=== PATIENT | male | born 1960 | race Caucasian/White ===

== ENCOUNTER 2022-04-26 20:58 | Emergency (ER) | payer OTHER, SELFPAY ==
[2022-04-26 21:05] VITALS: BP 134/75; PULSE 61; RESP 16; O2SAT 100
[2022-04-26] MEDS: TETANUS,DIPHTHERIA,AC PERTUSSIS ADULT (0.5 ML) BOOSTRIX IM (21:50)
--- NOTE | 2022-04-26 23:05 | ED.WOUNDLAC ---
HPI - Wound/Laceration General Chief Complaint: Wound/Laceration Stated Complaint: FINGER LAC Time Seen by Provider: 04/26/22 21:09 History of Present Illness HPI narrative: Patient is a 61-year-old male here for evaluation of a laceration sustained to his left middle finger 1 hour prior to arrival. Patient states that he sustained the injury when he was working on his car. He stuck his finger in a container and when he pulled his finger out his finger was bleeding. The container was full of oil. He covered the area and came straight to the ED. last tetanus unknown. Denies numbness or tingling in fingers. Related Data Allergies Allergy/AdvReac Type Severity Reaction Status Date / Time No Known Allergies Allergy Verified 04/26/22 21:10 Review of Systems Review of Systems: Gen.: Denies fevers or chills Eyes: Denies eye pain or visual change ENT: Denies congestion Respiratory: Denies shortness of breath or cough CV: Denies chest pain or palpitations GI: Denies abdominal pain nausea, emesis or diarrhea denies burning, urgency, frequency or hematuria Musculoskeletal: Denies back pain or muscle pain Neuro: Denies numbness, tingling, weakness or focal weakness Skin: Reports laceration Except as documented, all other systems reviewed and negative COUNT INCLUDES [facility] Past Medical History Medical History HLD (hyperlipidemia) Surgical History Surgical History History of vasectomy S/P TURP (status post transurethral resection of prostate) Family History Family History Father Hypertension Family history of diabetes mellitus in first degree relative Social History Social History Years smoked: 5 Smoking status: Never smoker Tobacco type: cigarettes Second hand tobacco smoke exposure: No Alcohol intake: current Drinks per week: 1 Substance use: never Substance use type: does not use Gender identity (if verbalized by the patient): Male Exam Narrative: Gen: Alert, oriented, no acute distress. Eyes: EOMI, no icterus Pulm: Respirations even and unlabored, symmetric thorax expansion, no audible stridor or visible cyanosis CV: Regular rate per telemetry GI: No distension, no voluntary/involuntary guarding MSK: FROM in all digits of right hand. No numbness in digits or along hand. Neuro: AOx4, moves all extremities without apparent difficulty or weakness, follows commands Skin: Patient has an irregular skin flap laceration to the fingertip of the right third finger with active bleeding. Psych: Normal mood/affect, insight/judgement good, adequate fund of knowledge, recent/remote memory intact Course Vital Signs Vital signs: Vital Signs Pulse Rate 61 04/26/22 21:05 Respiratory Rate 16 04/26/22 21:05 Blood Pressure 134/75 04/26/22 21:05 Pulse Oximetry 100 04/26/22 21:05 Pulse Rate 61 04/26/22 21:05 Respiratory Rate 16 04/26/22 21:05 Blood Pressure 134/75 04/26/22 21:05 Pulse Oximetry 100 04/26/22 21:05 Procedures Laceration Laceration 1: Date: 04/27/22 Time: 21:30 Site: hand (palmar aspect of right third fingertip) Description: flap, irregular and contaminated Depth: simple, single layer Local Anesthetic: lidocaine 1% Amount of anesthesia used (mL): 3 ====== Skin Level ====== Skin layer closed with: steri strips ====== Subcutaneous Layer ====== ====== Muscle Layer ====== ====== Tendon Layer ====== MDM - Wound/Laceration MDM Narrative Medical decision making narrative: 61-year-old male here for evaluation of a skin flap laceration to his right third fingertip with active bleeding sustained 1 hour prior to arrival. Vital signs are normal he is neurovascular intact distal to
== END 2022-04-26 22:17 | disposition home or self-care (01) ==
PROVIDERS: Emergency Provider Family Medicine; PCP Family Medicine
DX: S61.212A Laceration without foreign body of right middle finger without damage to nail, initial encounter (principal); W26.9XXA Contact with unspecified sharp object(s), initial encounter; Z23 Encounter for immunization
CPT/HCPCS: 90471; 90715; 99282

== ENCOUNTER 2023-01-19 09:06 | Outpatient (CLI) | payer OTHER, SELFPAY | END 2023-01-19 09:07 | disposition home or self-care (01) | LOC: ANHSURGERY 09:11 | PROVIDERS: PCP Family Medicine; Visit Provider Surgery | DX: K42.9 Umbilical hernia without obstruction or gangrene (principal); Z01.818 Encounter for other preprocedural examination | CPT/HCPCS: 36415; 86850; 86900; 86901 ==

== ENCOUNTER 2023-01-23 01:11 | Day surgery (SDC) | payer OTHER, SELFPAY ==
[2023-01-18 12:14] VITALS: BMI 23.5
--- NOTE | 2023-01-18 12:21 | PC.NURSE ---
Report to the Outpatient Waiting Room, entrance under the green pavilion located off [facility], at time 1030 on date 01/23/23. Planned Procedure Time: 1230. Time changes happen often and if your time is changed the preop area will call you the afternoon before. - You and your visitor will be asked to self-screen and do not enter if you have any COVID symptoms. - Only one visitor is requested with a max of two and NO children visitors are allowed at this time. - The patient visitor may be requested to leave or wait in car when not with patient due to distancing restrictions. - A mask is optional within the hospital at this time. Patients may have clear liquids (water, carbonated beverages, clear teas, apple juice) until 3 hours prior to surgery (0930) with a maximum of 20 ounces. - No food from midnight until time of surgery Take the following medications with a SIP of water the morning of surgery: EYE DROPS DO NOT STOP ANY OF YOUR OTHER PRESCRIPTION MEDICATIONS PRIOR TO SURGERY EXCEPT THE FOLLOWING Medications to discontinue per physician: N/A Date to take last dose: N/A Please no make-up, nail portuguese, hairspray, perfume, deodorant, or body powder the day of surgery. No jewelry (including any body piercings) or valuables the day of surgery, leave them at home. Please take a shower or bath the night before, or the morning of, surgery with an antibacterial soap (HIBICLENS). Wear comfortable, loose fitting clothing. - Jewelry must be removed prior to entering the operating room. Rings and piercings that are not removed may be cut off. - The hospital will not accept responsibility for valuables. - Please leave all valuables, including medications, at home the day of surgery. If you are going home after surgery, a licensed combine driver must drive you home. - NO public transportation without another adult if you receive anesthesia. - We recommend that an adult stay with you for 24 hours following discharge. - We also recommend that you do not drive, make important decision, drink alcoholic beverages, or take any drugs that were not prescribed by your health care provider for at least 24 hours after your discharge time. Follow any additional instructions given to you from your surgeon. If you or anyone in your household have experienced Covid symptoms in the past week, please notify your surgeon or the nurse liaison at the phone number below for possible testing. Telephone instructions given to MARIA DEL CARMEN ROSS and asked if any additional questions and then verbalized understanding. Patient advised to call surgeon office or pre surgery nurse liaison [phone] if any additional questions.
[2023-01-23] VITALS (8 sets, daily range): BP systolic 121–147; BP diastolic 74–90; PULSE 52–82; RESP 10–17; TEMP 36.1–36.2; O2SAT 100
--- NOTE | 2023-01-23 11:09 | WPDHPUPDATE1 ---
History and Physical Update Update Date/Time: 01/23/23 11:09 History and Physical has been reviewed, including an updated exam of the patient. There are NO changes in the patient's condition. Risks, benefits, and alternatives have been discussed and questions answered. Patient agrees to proceed with procedure.
[2023-01-23] MEDS: ACETAMINOPHEN 500 MG TABLET 1000 MG PO (11:28)
[2023-01-23] MEDS: KETOROLAC 15 MG/ML VIAL (*BKC) IV PUSH (11:28)
[2023-01-23] MEDS: LACTATED RINGERS 1,000 ML 30 ML IV CONT ×2 (11:28→13:28)
--- NOTE | 2023-01-23 11:34 | WPDANESEPPF ---
Anes - Initial Pre Proc Eval Procedure: Operation Date: 01/23/23 12:30 Proposed Procedures p Laparoscopic Umbilical Hernia Repair with Mesh, Davinci Assisted - Leland Inman DO Date/Time: 01/23/23 11:34 Surgeon: Leland Inman DO Pre Op Diagnosis: umbilical hernia Patient Data Age: 62 Gender: M Height: 1.7 m Weight: 68.1 kg Allergies Allergy/AdvReac Type Severity Reaction Status Date / Time No Known Allergies Allergy Verified 01/18/23 12:12 Home Medications Medication Instructions Recorded Confirmed Type Regener Eyes 1 drp EACH EYE BID 01/18/23 01/18/23 History Patient hx anesthesia problems: none Family hx anesthesia problems: none Results Review: All pre-operative results and documents have been reviewed as part of the pre-operative evaluation. [facility] Past Medical History Medical History History of prostate cancer HLD (hyperlipidemia) Surgical History Surgical History History of vasectomy S/P TURP (status post transurethral resection of prostate) Family History Family History Father Hypertension Family history of diabetes mellitus in first degree relative Social History Social History Years smoked: 5 Smoking status: Former smoker Tobacco type: cigarettes Second hand tobacco smoke exposure: No Smoking end date: 11/12/02 Additional smoking assessment comments: [employer]MER [employer] Alcohol intake: current Drinks per week: 2 Substance use: never Substance use type: does not use Living arrangements: with family Occupation/Education: occupation 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 Informed Consent: The patient's anesthetic plan and its attendant risks and benefits were discussed with the patient/family/POA. Questions were solicited and answers provided to the satisfaction of the patient/family/POA.
[2023-01-23] MEDS: ceFAZolin 2 GM/D5W 50 ML 2 GM/50 ML BAG IVPB (11:39)
--- NOTE | 2023-01-23 13:18 | W.PM.PROC2 ---
Procedure Note - Detailed Date of Procedure 01/23/23 Pre-op Diagnosis umbilical hernia Post-op Diagnosis Same Procedure Performed Laparoscopic 1cm Umbilical Hernia Repair with Mesh, da Daniel assisted Surgeon Leland Inman DO Anesthesia General and Local (Exparel) Indications This is a 62-year-old man who presented with a small bulge at his umbilicus that he noticed about 1 month ago. He does not recall doing anything caused this bulge and denies any significant pain associated with it but does have some uncomfortable feelings along his central upper abdomen. He was found to have a 1 cm reducible umbilical hernia on physical exam. Discussions were made with the patient about treatment options and decision was made to proceed with robotic assisted laparoscopic umbilical hernia repair with mesh. Findings Laparoscopic umbilical hernia repair was performed. The patient was found to have a small 1 cm umbilical hernia containing preperitoneal fat. No other the significant abnormalities were noted. A robotic transabdominal preperitoneal approach was utilized for repair. A preperitoneal pocket was created and then a 10 cm x 8 cm Bard soft mesh was placed within the preperitoneal pocket and secured to the abdominal wall. No specimens were obtained for pathology. Description of Procedure Procedure as well as risks, benefits, and alternatives were discussed with the patient. Written consent was obtained and placed in chart prior to procedure. Patient was brought back to surgical suite. He was placed supine on operating table. Time-out was done to confirm patient and procedure. He was then intubated by the anesthesia department. A bump was placed under his left hip, and the bed was flexed slightly to extend the space between his costal margin and iliac crest. His abdomen was prepped and draped in sterile fashion using chlorhexidine prep. A 5 millimeter incision was made in the left upper quadrant, and a 5 millimeter Optiview trocar was advanced through the abdominal layers under direct visualization. Once inside the abdominal cavity, carbon dioxide insufflation was used to create a pneumoperitoneum. His abdomen was inspected. An 8 millimeter incision was made in the left lower quadrant, and an 8 millimeter robotic trocar was placed under direct visualization. Another 8 millimeter incision was made in the left lateral abdomen, and an 8 millimeter robotic trocar was placed under direct visualization. Exparel was infiltrated along the lateral abdominal jackson to perform a transversus abdominis plane block bilaterally. The 5 millimeter port was removed, and an 8 mm port was placed in this location. The robotic arms were brought up to the patient's bedside and secured to the ports. The camera and instruments were inserted, and I then moved over to the robotic console and took control of the camera and instruments. After careful thorough inspection of the abdominal cavity, I began my dissection at the hernia. A preperitoneal plane was dissected starting from the left lateral abdomen and dissecting medially to midline and then off to the right lateral abdomen as well. The hernia sac and preperitoneal fat was reduced from within the hernia defect. I then measured the hernia size. The hernia measured 1 cm. The fascia was closed using an 0-Stratafix running suture in a vertical fashion. A 10 centimeter x 8 centimeter Bard soft mesh was then placed within the preperitoneal pocket. This was oriented vertically with the mesh centered on the hernia defect. The mesh was then secured to the abdominal wall using 3-0 Vicryl simple interrupted sutures the center of the mesh and at the 4 corners. The peritoneum was then closed over the mesh using 3 0 V lock running absorbable suture. The repair was inspected, and one final inspection was made around the abdominal cavity. The robotic instruments were then removed, and the robotic arms were disengaged from the trocars. T
[2023-01-23] MEDS: oxyCODONE HCL (*CRX) 5 MG TAB IR PO (14:45)
== END 2023-01-23 15:42 | disposition home or self-care (01) ==
PROVIDERS: PCP Family Medicine; Visit Provider Surgery
PROC: (CPT 49591; principal; 2023-01-23 12:30)
DX: K42.9 Umbilical hernia without obstruction or gangrene (principal); E78.5 Hyperlipidemia, unspecified; Z85.46 Personal history of malignant neoplasm of prostate
CPT/HCPCS: 49591; A9270; C1781; C9290; J0690; J1100; J1170; J1885; J2405; J2704; J3010; J7120